=== PATIENT | male | born 1965 | race African-American/Black ===

== ENCOUNTER 2018-12-12 10:59 | Observation (INO) | payer OTHER ==
[2018-12-12] MEDS ORDERED: NITROGLYCERIN SL TABS 0.4 MG TAB SUBLINGUAL STA (11:23)
[2018-12-12] MEDS ORDERED: ASPIRIN 81 MG PO STA (11:23)
--- NOTE | 2018-12-12 11:45 | ED ---
Chest Pain HPI - General Chief Complaint: Chest Pain Stated Complaint: Chest Pain Time Seen by Provider: 12/12/18 11:00 Source: patient, EMS, RN notes reviewed Mode of arrival: EMS Limitations: no limitations - History of Present Illness Initial Comments: This is a 53-year-old male with a history of an AL this past June who states he started developing chest pain last evening. It was intermittent now he states is 9/10 severity mid and left sternal pressure-like pain. He denies any shortness of breath however nausea vomiting sweats or other symptoms. He currently is in rehab for alcohol and cocaine abuse. He just arrived here last night he states. He does occasionally smoke cigarettes also. He denies any cough or phlegm production no other symptoms reported at this time MD Complaint: chest pain - Related Data Home Medications Medication Instructions Recorded Confirmed Acetaminophen [Tylenol 8 Hour] 650 mg PO Q4H PRN 12/12/18 12/12/18 Chlorpheniramine Maleate 4 mg PO Q4H PRN 12/12/18 12/12/18 [Chlor-Trimeton] Hydrochlorothiazide [Hydrodiuril] 12.5 mg PO DAILY@0600 12/12/18 12/12/18 Ibuprofen [Motrin] 600 mg PO Q6H PRN 12/12/18 12/12/18 Insulin Regular [HumuLIN R] 10 units SQ DAILY 12/12/18 12/12/18 Insulin Regular [HumuLIN R] See Protocol SQ ACHS 12/12/18 12/12/18 Multivitamins, Thera [Multivitamin 1 tab PO DAILY 12/12/18 12/12/18 (formulary)] Thiamine [Vitamin B-1] 100 mg PO DAILY 12/12/18 12/12/18 metFORMIN HCL [Glucophage] 500 mg PO BID 12/12/18 12/12/18 traZODone HCL 50 - 150 mg PO HS 12/12/18 12/12/18 Allergies Allergy/AdvReac Type Severity Reaction Status Date / Time Sulfa (Sulfonamide AdvReac Unknown Verified 12/12/18 11:08 Antibiotics) Review of Systems ROS Statement: Those systems with pertinent positive or pertinent negative responses have been documented in the HPI. ROS Other: All systems not noted in ROS Statement are negative. EKG Findings - EKG Results: EKG: interpreted by GOLDY, sinus rhythm (Sinus tachycardia rate of 105. Interval 162 QRS 70 QT since QTC 358/[address]-T wave changes this is compared to an EKG dated which shows a similar configuration.) Past Medical History Past Medical History: Chest Pain / Angina, CVA/TIA, Diabetes Mellitus History of Any Multi-Drug Resistant Organisms: None Reported Past Surgical History: No Surgical Hx Reported Past Psychological History: Depression Smoking Status: Current some day smoker Past Alcohol Use History: Heavy Past Drug Use History: Cocaine General Exam - General Exam Comments Initial Comments: Is a well-developed well-nourished awake alert oriented 3 male Limitations: no limitations General appearance: alert, in no apparent distress Head exam: Present: atraumatic, normocephalic, normal inspection Eye exam: Present: normal appearance, PERRL, EOMI. Absent: scleral icterus, conjunctival injection, periorbital swelling ENT exam: Present: normal exam, mucous membranes moist Neck exam: Present: normal inspection, full ROM, other (No stridor JVD or bruits ). Absent: tenderness, meningismus, lymphadenopathy Respiratory exam: Present: normal lung sounds bilaterally. Absent: respiratory distress, wheezes, rales, rhonchi, stridor, chest wall tenderness Cardiovascular Exam: Present: normal rhythm, tachycardia, normal heart sounds. Absent: systolic murmur, diastolic murmur, rubs, gallop, clicks GI/Abdominal exam: Present: soft, normal bowel sounds. Absent: distended, tenderness, guarding, rebound, rigid, bruit, pulsatile mass Extremities exam: Present: normal inspection, full ROM, normal capillary refill. Absent: tenderness, pedal edema, joint swelling, calf tenderness Back exam: Present: normal inspection Neurological exam: Present: alert, oriented X3, CN II-XII intact Psychiatric exam: Present: normal mood, flat affect Skin exam: Present: warm, dry, intact, normal color. Absent: rash Course Vital Signs 12/12/18 11:02 Temperature 98.1 F Pulse Rate 105 H Respiratory 16 Rate Blood Pressure 120/86 O2 Sat by Pulse 100 Oximetry - Reevaluation(s) Reevaluation #1: 12/12/18 14:01 She does state he gets some relief of the nitroglycerin was given. He still has some chest pain however. Chest Pain MDM - MDM I did review the imaging and report or is no acute findings. The patient will be admitted for evaluation by cardiology. The presentation is consistent with angina. EKG at this time reveal similar configuration as EKG dated Critical Care Time Critical Care Time: Yes Critical Care Time: 31 minutes of critical care time which includes initial presentation with history physical labs x-rays reevaluation patient on several occasions discuss with the admitting physician Dr. Gracia. Review of old charting was available admission orders and documentation of the above Disposition Clinical Impression: Unstable angina pectoris, Chest pain Disposition: ADMITTED IP TO THIS [facility] Condition: Serious Referrals: None,Stated [Primary Care Provider] - 1-2 days
[2018-12-12 11:53] LABS: Basophils % (A) 1 %; Eosinophils # (A) 0.1 k/uL (0-0.7); Eosinophils % (A) 2 %; HCT 41.3 % (39.0-53.0); HGB 14.1 gm/dL (13.0-17.5); Lymphocytes # (A) 1.1 k/uL (1.0-4.8); Lymphocytes % (A) 24 %; MCH 30.3 pg (25.0-35.0); MCHC 34.1 g/dL (31.0-37.0); MCV 88.8 fL (80.0-100.0); Mean Platelet Volume 7.2; Monocytes # (A) 0.5 k/uL (0-1.0); Monocytes % (A) 11 %; Neutrophils # (A) 2.7 k/uL (1.3-7.7); Neutrophils % (A) 60 %; Platelet Count 172 k/uL (150-450); RBC 4.65 m/uL (4.30-5.90); RDW 13.1 % (11.5-15.5); WBC 4.4 k/uL (3.8-10.6)
[2018-12-12 12:11] LABS: ALT 11 U/L (21-72); AST 27 U/L (17-59); Albumin 3.9 g/dL (3.5-5.0); Alkaline Phosphatase 38 U/L (38-126); Amylase 78 U/L (30-110); Anion Gap 11 mmol/L; Blood Urea Nitrogen 21 mg/dL (9-20); Calcium 9.3 mg/dL (8.4-10.2); Carbon Dioxide 25 mmol/L (22-30); Chloride 96 mmol/L (98-107); Glucose 356 mg/dL (74-99); Lipase 17 U/L (23-300); Magnesium 1.7 mg/dL (1.6-2.3); Sodium 132 mmol/L (137-145); Total Bilirubin 0.8 mg/dL (0.2-1.3)
[2018-12-12 12:15] LABS: Creatine Kinase 51 U/L (55-170)
[2018-12-12 12:17] LABS: D-Dimer 0.32 mg/L FEU (<0.60); INR 0.9 (<1.2); Prothrombin Time 9.7 sec (9.0-12.0)
--- NOTE | 2018-12-12 12:26 | XR ---
EXAMINATION TYPE: XR chest 2V DATE OF EXAM: 12/12/2018 COMPARISON: NONE HISTORY: Shortness of breath TECHNIQUE: Frontal and lateral views of the chest are obtained. FINDINGS: Scattered senescent parenchymal changes noted. Hyperinflation compatible with COPD. No evidence for infiltrate. No evidence for atelectasis. Heart size is stable. Mediastinal structures are stable and grossly unremarkable. No evidence for hilar prominence. Degenerative changes dorsal spine. IMPRESSION: 1. No evidence for acute pulmonary disease.
[2018-12-12 12:27] LABS: Creatine Kinase MB 0.5 ng/mL (0.0-2.4); Troponin I <0.012 ng/mL (0.000-0.034)
[2018-12-12 12:31] LABS: Potassium 4.6 mmol/L (3.5-5.1)
[2018-12-12] MEDS ORDERED: NITROGLYCERIN OINT 1 INCH/GM PACKET TOPICAL STA (13:28)
[2018-12-12] MEDS ORDERED: NITROGLYCERIN SL TABS 0.4 MG TAB SUBLINGUAL PRN (14:04)
[2018-12-12] MEDS ORDERED: HEPARIN SODIUM,PORCINE 5,000 UNIT/ML 1 ML VIAL IV ONE (14:04)
[2018-12-12] MEDS ORDERED: ACETAMINOPHEN TAB 325 MG TAB PO PRN (14:08)
[2018-12-12] MEDS ORDERED: IBUPROFEN 600 MG TAB PO PRN (14:08)
[2018-12-12] MEDS ORDERED: diphenhydrAMINE 25 MG CAP PO PRN (14:08)
[2018-12-12] MEDS ORDERED: HEPARIN SOD,PORK IN 0.45% NACL 25,000 UNIT in 0.45% NACL 1 250ML.BAG IV SCH (14:15)
[2018-12-12 15:37] VITALS: RESP 18
--- NOTE | 2018-12-12 16:43 | P.HPIM ---
History of Present Illness Patient is a 51-year-old man came in with compensative chest pressure which started yesterday at [facility] exertional 9/10 in severity left precordial area radiating to the left shoulder associated shortness of breath lightheadedness as well as diaphoresis denied any nausea vomiting patient just pain is nonpleuritic not associated with food. Patient denied any fever chills cough chest x-ray did not show any pneumonic process d-dimer is negative. Patient was set of troponin is negative EKG EKG did not show any acute ST-T wave changes. Patient does have history of cocaine use but his last cocaine is more than 2 weeks ago patient was admitted to [facility] yesterday. Patient had a recent cardiac Catheterization at the [facility] in [place] and he was told he has a 30% stenosis in one of the vessels without any medical records from that facility. We will also obtain urine drug screen. Review of Systems REVIEW OF SYSTEMS: CONSTITUTIONAL: No fever, no malaise, no fatigue. HEENT: No recent visual problems or hearing problems. Denied any sore throat. CARDIOVASCULAR: No chest pain, orthopnea, PND, no palpitations, no syncope. PULMONARY: No shortness of breath, no cough, no hemoptysis. GASTROINTESTINAL: No diarrhea, no nausea, no vomiting, no abdominal pain. NEUROLOGICAL: No headaches, no weakness, no numbness. HEMATOLOGICAL: Denies any bleeding or petechiae. GENITOURINARY: Denies any burning micturition, frequency, or urgency. MUSCULOSKELETAL/RHEUMATOLOGICAL: Denies any joint pain, swelling, or any muscle pain. ENDOCRINE: Denies any polyuria or polydipsia. The rest of the 14-point review of systems is negative. Past Medical History Past Medical History: Chest Pain / Angina, CVA/TIA, Diabetes Mellitus, GERD/ Reflux, GI Bleed, Hypertension, Myocardial Infarction ([place]) Additional Past Medical History / Comment(s): bronchitis, "ulcers" ,tia, migraines Last Myocardial Infarction Date:: 2017 History of Any Multi-Drug Resistant Organisms: None Reported Past Surgical History: Heart Catheterization Additional Past Surgical History / Comment(s): lasik eye sx, egd, cyst removed from back Past Anesthesia/Blood Transfusion Reactions: Motion Sickness Additional Past Anesthesia/Blood Transfusion Reaction / Comment(s): has never received any blood transfusions Smoking Status: Current some day smoker - Past Family History Mother Family Medical History: Diabetes Mellitus, Hypertension Father History Unknown: Yes Medications and Allergies Home Medications Medication Instructions Recorded Confirmed Type Acetaminophen [Tylenol 8 Hour] 650 mg PO Q4H PRN 12/12/18 12/12/18 History Chlorpheniramine Maleate 4 mg PO Q4H PRN 12/12/18 12/12/18 History [Chlor-Trimeton] Hydrochlorothiazide [Hydrodiuril] 12.5 mg PO DAILY@0600 12/12/18 12/12/18 History Ibuprofen [Motrin] 600 mg PO Q6H PRN 12/12/18 12/12/18 History Insulin Regular [HumuLIN R] 10 units SQ DAILY 12/12/18 12/12/18 History Insulin Regular [HumuLIN R] See Protocol SQ ACHS 12/12/18 12/12/18 History Multivitamins, Thera [Multivitamin 1 tab PO DAILY 12/12/18 12/12/18 History (formulary)] Thiamine [Vitamin B-1] 100 mg PO DAILY 12/12/18 12/12/18 History metFORMIN HCL [Glucophage] 500 mg PO BID 12/12/18 12/12/18 History traZODone HCL 50 - 150 mg PO HS 12/12/18 12/12/18 History Allergies Allergy/AdvReac Type Severity Reaction Status Date / Time Sulfa (Sulfonamide AdvReac Unknown Verified 12/12/18 11:08 Antibiotics) Physical Exam Vitals: Vital Signs Temp Pulse Pulse Resp BP BP Pulse Ox 12/12/18 16:00 95 18 12/12/18 15:15 98.7 F 95 18 132/88 98 12/12/18 14:31 98.0 F 90 16 119/85 100 12/12/18 11:02 98.1 F 105 H 16 120/86 100 Intake and Output 12/12/18 12/12/18 12/12/18 06:59 14:59 22:59 Intake Total 480 Balance 480 Intake: Oral 480 Other: Voiding Method Toilet Weight 80.739 kg PHYSICAL EXAMINATION: GENERAL: The patient is alert and oriented x3, not in any acute distress. Well developed, well nourished. HEENT: Pupils are round and equally reacting to light. EOMI. No scleral icterus. No conjunctival pallor. Normocephalic, atraumatic. No pharyngeal erythema. No thyromegaly. CARDIOVASCULAR: S1 and S2 present. No murmurs, rubs, or gallops. PULMONARY: Chest is clear to auscultation, no wheezing or crackles. ABDOMEN: Soft, nontender, nondistended, normoactive bowel sounds. No palpable organomegaly. MUSCULOSKELETAL: No joint swelling or deformity. EXTREMITIES: No cyanosis, clubbing, or pedal edema. NEUROLOGICAL: Gross neurological examination did not reveal any focal deficits. SKIN: No rashes. Results CBC & Chem 7: 12/12/18 11:15 12/12/18 11:15 Labs: Abnormal Lab Results - Last 24 Hours (Table) 12/12/18 12/12/18 Range/Units 11:15 11:15 Sodium 132 L (137-145) mmol/L Chloride 96 L (98-107) mmol/L BUN 21 H (9-20) mg/dL Glucose 356 H (74-99) mg/dL ALT 11 L (21-72) U/L Total Creatine Kinase 51 L (55-170) U/L Lipase 17 L (23-300) U/L Thrombosis Risk Factor Assmnt - Choose All That Apply Any of the Below Risk Factors Present?: Yes Each Factor Represents 1 point: Age 41-60 years Thrombosis Risk Factor Assessment Total Risk Factor Score: 1 Thrombosis Risk Factor Assessment Level: Low Risk Assessment and Plan Plan: -Chest pain: We will rule out a concurrent syndromes and unstable angina. Patient is recent headache catheterization with 30% stenosis unsure whether he will need a repeat cardiac catheterizations since he had one recently in spite of his typical chest pain features. -Hyponatremia secondary to hydrocodone thiazide which will be discontinued and patient was started on IV fluids -Type 2 diabetes mellitus metformin will be held his insulin will be continued along with sliding scale. -Continue nicotine use: Counseling was provided -History of cocaine use: Counseling was provided patient will go to [facility] after this hospitalization
[2018-12-12] MEDS: SODIUM CHLORIDE 0.9% 1,000 ML IV SCH (16:52)
[2018-12-12 17:30] LABS: Glucose,Whole Blood 267 mg/dL (75-99)
[2018-12-12] MEDS ORDERED: metFORMIN 500 MG TAB PO SCH (17:30)
[2018-12-12] MEDS: INSULIN ASPART (NovoLOG) 100 UNIT/ML VIAL SQ SCH ×2 (17:34→20:38)
[2018-12-12] MEDS: NITROGLYCERIN OINT 1 INCH/GM PACKET TOPICAL SCH ×2 (17:34→22:45)
[2018-12-12 18:22] LABS: Creatine Kinase 42 U/L (55-170)
[2018-12-12 18:36] LABS: Creatine Kinase MB 0.4 ng/mL (0.0-2.4); Troponin I <0.012 ng/mL (0.000-0.034)
[2018-12-12 20:21] LABS: Glucose,Whole Blood 311 mg/dL (75-99)
[2018-12-12] MEDS ORDERED: traZODone HCL 50 MG TAB PO SCH (21:00)
[2018-12-13] MEDS: SODIUM CHLORIDE 0.9% 1,000 ML IV SCH
[2018-12-13 00:11] LABS: Creatine Kinase 38 U/L (55-170)
[2018-12-13 00:25] LABS: Creatine Kinase MB 0.4 ng/mL (0.0-2.4); Troponin I <0.012 ng/mL (0.000-0.034)
[2018-12-13 00:47] LABS: Cholesterol 209 mg/dL (<200); HDL Cholesterol 33 mg/dL (40-60); LDL Cholesterol,Calculated 157 mg/dL (0-99); Triglycerides 94 mg/dL (<150)
[2018-12-13] MEDS ORDERED: HYDROCHLOROTHIAZIDE 12.5 MG CAP PO SCH (06:00)
[2018-12-13 06:54] LABS: Glucose,Whole Blood 355 mg/dL (75-99)
[2018-12-13] MEDS ORDERED: DOBUTamine DRIP for NUC MED 500 MG in DEXTROSE/WATER 1 250ML.BAG IV ONE (08:15)
[2018-12-13] MEDS ORDERED: ASPIRIN 325 MG TAB PO SCH (09:00)
[2018-12-13] MEDS ORDERED: INSULIN REGULAR 100 UNIT/ML VIAL SQ SCH (09:00)
[2018-12-13] MEDS: INSULIN ASPART (NovoLOG) 100 UNIT/ML VIAL SQ SCH ×2 (09:38→12:52)
[2018-12-13] MEDS ORDERED: LOSARTAN 25 MG TAB PO SCH (10:15)
[2018-12-13] MEDS ORDERED: ATORVASTATIN 40 MG TAB PO SCH (10:15)
--- NOTE | 2018-12-13 10:16 | P.CRDCN ---
History of Present Illness History of present illness: This is a pleasant 53-year-old male past medical history significant for coronary artery disease s/p PR per the patient with no stents or bypass surgery. He states this took place last year in [place], will obtain those records. He also has diabetes mellitus, hypertension, prior CVA and suffers with cocaine addiction, chronic nicotine dependence and daily alcohol use. He last used cocaine 2 weeks ago and is currently being treated at [facility]. He follows with a iron piler in [place]. We have been asked to see him in consultation for chest pain. He states for the past 2 nights when he lays down to sleep he gets a pressure in his chest in the left precordial region that radiates to the left shoulder at times. This is not related to exertion with no specific aggravating factors. He feels mildly light headed and diaphoretic when he is having this discomfort. Currently he is laying flat in bed in no acute distress. His chest pain has subsided. EKG reveals sinus tachycardia heart rate [address] or T wave abnormalities noted. Repeat EKG unremarkable. Chest x-ray is negative for an acute cardiopulmonary process. Evidence of hyperinflation compatible with COPD. Laboratory data reviewed, cardiac enzymes negative 3, WBC 4.4, hemoglobin 14.1 , platelets 172, d-dimer 0.32, sodium 132, potassium 4.6, magnesium 1.7 and creatinine 0.88. NT proBNP 32, LDL 157. Current cardiac medications include hydrochlorothiazide 12.5 mg daily. Hctz has been held per primary for hyponatremia. At the time of my exam: CONSTITUTIONAL: Denies fever. Denies chills. EYES: Denies blurred vision. Denies vision changes. Denies eye pain. EARS, NOSE, MOUTH & THROAT: Denies headache. Denies sore throat. Denies ear pain. CARDIOVASCULAR: Denies chest pain. Denies shortness of breath. Denies orthopnea. Denies PND. Denies palpitations. RESPIRATORY: Denies cough. GASTROINTESTINAL: Denies abdominal pain. Denies diarrhea. Denies constipation. Denies nausea. Denies vomiting. MUSCULOSKELETAL: Denies myalgias. INTEGUMENTARY: Denies pruitis. Denies rash. NEUROLOGIC: Denies numbness. Denies tingling. Denies weakness. PSYCHIATRIC: Denies anxiety. Denies depression. ENDOCRINE: Denies fatigue. Denies weight change. Denies polydipsia. Denies polyurina. GENITOURINARY: Denies burning, hematuria or urgency with micturation. HEMATOLOGIC: Denies history of anemia. Denies bleeding. Blood pressure 149/91 heart rate 94 afebrile maintaining oxygen saturation on room air GENERAL: This is a 53-year-old -[place] male in no apparent distress at the time of my examination. HEENT: Head is atraumatic, normocephalic. Pupils are equal, round. Sclerae anicteric. Conjunctivae are clear. Mucous membranes of the mouth are moist. Neck is supple. There is no jugular venous distention. No carotid bruit is heard. LUNGS: Clear to auscultation no wheezes, rales or rhonchi. No chest wall tenderness is noted on palpation or with deep breathing. HEART: Regular rate and rhythm without murmurs, rubs or gallops. S1 and S2 heard. ABDOMEN: Soft, nontender. Bowel sounds are heard. No organomegaly noted. EXTREMITIES: No evidence of peripheral edema and no calf tenderness noted. VASCULAR: Radial and dorsalis pedis pulses palpated, no evidence of clubbing. NEUROLOGIC: Patient is awake, alert and oriented x3. ASSESSMENT Chest pain, atypical for angina. An acute coronary event has been ruled out. Hypertension Dyslipidemia Diabetes mellitus Cocaine abuse Chronic nicotine dependence Daily alcohol intake PLAN An acute coronary event has been ruled out. Obtain reports [place] [facility] [place]. Obtain 2D echocardiogram and doppler study to assess cardiac structure and function. Perform dobutamine stress echocardgiogram to assess for stress induced ischemia. Recommend atorvastatin 40 mg daily for lowering of LD cholesterol and losartan for blood pressure control. Cessation of alcohol, cocaine and tobacco highly recommended. If stress test is normal he is stable from a cardiac perspective for discharge back to rehab. Follow up upon discharge with his primary iron piler. Thank you kindly for this consultation. Nurse Practitioner note has been reviewed, I agree with a documented findings and plan of care. Patient was seen and examined. Past Medical History Past Medical History: Chest Pain / Angina, CVA/TIA, Diabetes Mellitus, GERD/ Reflux, GI Bleed, Hypertension, Myocardial Infarction ([place]) Additional Past Medical History / Comment(s): bronchitis, "ulcers" ,tia, migraines Last Myocardial Infarction Date:: 2017 History of Any Multi-Drug Resistant Organisms: None Reported Past Surgical History: Heart Catheterization Additional Past Surgical History / Comment(s): lasik eye sx, egd, cyst removed from back Past Anesthesia/Blood Transfusion Reactions: Motion Sickness Additional Past Anesthesia/Blood Transfusion Reaction / Comment(s): has never received any blood transfusions Smoking Status: Current some day smoker - Past Family History Mother Family Medical History: Diabetes Mellitus, Hypertension Father History Unknown: Yes Medications and Allergies Home Medications Medication Instructions Recorded Confirmed Type Acetaminophen [Tylenol 8 Hour] 650 mg PO Q4H PRN 12/12/18 12/12/18 History Chlorpheniramine Maleate 4 mg PO Q4H PRN 12/12/18 12/12/18 History [Chlor-Trimeton] Hydrochlorothiazide [Hydrodiuril] 12.5 mg PO DAILY@0600 12/12/18 12/12/18 History Ibuprofen [Motrin] 600 mg PO Q6H PRN 12/12/18 12/12/18 History Insulin Regular [HumuLIN R] 10 units SQ DAILY 12/12/18 12/12/18 History Insulin Regular [HumuLIN R] See Protocol SQ ACHS 12/12/18 12/12/18 History Multivitamins, Thera [Multivitamin 1 tab PO DAILY 12/12/18 12/12/18 History (formulary)] Thiamine [Vitamin B-1] 100 mg PO DAILY 12/12/18 12/12/18 History metFORMIN HCL [Glucophage] 500 mg PO BID 12/12/18 12/12/18 History traZODone HCL 50 - 150 mg PO HS 12/12/18 12/12/18 History Allergies Allergy/AdvReac Type Severity Reaction Status Date / Time Sulfa (Sulfonamide AdvReac Unknown Verified 12/12/18 11:08 Antibiotics) Physical Exam Vitals: Vital Signs Temp Pulse Pulse Resp BP BP Pulse Ox 12/13/18 04:00 98.4 F 105 H 18 103/64 96 12/13/18 00:00 18 12/12/18 23:13 98.9 F 114 H 18 146/93 97 12/12/18 20:00 99.1 F 104 H 18 116/77 95 12/12/18 19:02 96 12/12/18 16:00 95 18 12/12/18 15:15 98.7 F 95 18 132/88 98 12/12/18 14:31 98.0 F 90 16 119/85 100 12/12/18 11:02 98.1 F 105 H 16 120/86 100 Intake and Output 12/12/18 12/13/18 12/13/18 22:59 06:59 14:59 Intake Total 118 129.389 Balance 118 129.389 Intake: Intake, IV Titration 129.389 Amount Heparin Sod,Pork in 0.45% 129.389 NaCl 25,000 unit In 0.45 % NaCl 1 250ml.bag @ 12 UNITS/KG/HR 9.68 mls/hr IV .Q24H [facility] Rx#: [id number] Oral 118 Other: Voiding Method Toilet Toilet # Voids 1 1 Results 12/12/18 11:15 12/12/18 11:15 Cardiac Enzymes 12/12/18 12/12/18 12/12/18 Range/Units 11:15 11:15 17:34 AST 27 (17-59) U/L CK-MB (CK-2) 0.5 0.4 (0.0-2.4) ng/mL Troponin I <0.012 <0.012 (0.000-0.034) ng/mL 12/12/18 Range/Units 23:20 AST (17-59) U/L CK-MB (CK-2) 0.4 (0.0-2.4) ng/mL Troponin I <0.012 (0.000-0.034) ng/mL Coagulation 12/12/18 12/13/18 Range/Units 11:15 02:00 PT 9.7 (9.0-12.0) sec APTT 22.0 38.7 H (22.0-30.0) sec Lipids 12/12/18 Range/Units 11:15 Triglycerides 94 (<150) mg/dL Cholesterol 209 H (<200) mg/dL HDL Cholesterol 33 L (40-60) mg/dL CBC 12/12/18 Range/Units 11:15 WBC 4.4 (3.8-10.6) k/uL RBC 4.65 (4.30-5.90) m/uL Hgb 14.1 (13.0-17.5) gm/dL Hct 41.3 (39.0-53.0) % Plt Count 172 (150-450) k/uL Comprehensive Metabolic Panel 12/12/18 Range/Units 11:15 Sodium 132 L (137-145) mmol/L Potassium 4.6 (3.5-5.1) mmol/L Chloride 96 L (98-107) mmol/L Carbon Dioxide 25 (22-30) mmol/L BUN 21 H (9-20) mg/dL Creatinine 0.88 (0.66-1.25) mg/dL Glucose 356 H (74-99) mg/dL Calcium 9.3 (8.4-10.2) mg/dL AST 27 (17-59) U/L ALT 11 L (21-72) U/L Alkaline Phosphatase 38 (38-126) U/L Total Protein 7.0 (6.3-8.2) g/dL Albumin 3.9 (3.5-5.0) g/dL Current Medications Generic Name Dose Route Start Last Admin Trade Name Freq PRN Reason Stop Dose Admin Acetaminophen 650 mg 12/12/18 14:08 12/12/18 23:08 Tylenol Tab PO 650 mg Q4H PRN Administration Pain or Fever > 100.5 Aspirin 325 mg 12/13/18 09:00 Aspirin PO DAILY [facility] Diphenhydramine HCl 25 mg 12/12/18 14:08 12/12/18 23:08 Benadryl PO 25 mg Q4H PRN Administration Allergy Symptoms Heparin Sodium/Sodium Chloride 250 mls @ 9.68 mls/hr 12/12/18 14:15 12/13/18 04:09 25,000 unit/ Sodium Chloride IV 15 units/kg/hr .Q24H [facility] 12.11 mls/hr Titration Protocol 12 UNITS/KG/HR Sodium Chloride 1,000 mls @ 100 mls/hr 12/12/18 16:45 12/13/18 00:00 Saline 0.9% IV 100 mls/hr .Q10H [facility] Administration Insulin Aspart 0 unit 12/12/18 17:30 12/12/18 20:38 Novolog SQ 5 unit ACHS [facility] Administration Protocol Insulin Human Regular 10 unit 12/13/18 09:00 Humulin R SQ DAILY [facility] Multivitamins 1 each 12/13/18 12:00 Theragran PO 1200 [facility] Nitroglycerin 1 inch 12/12/18 18:00 12/12/18 22:45 Nitro-Bid Oint TOPICAL Not Given Q6HR [facility] Nitroglycerin 0.4 mg 12/12/18 14:04 Nitrostat SUBLINGUAL Q5M PRN Chest Pain Thiamine HCl 100 mg 12/13/18 12:00 Vitamin B-1 PO 1200 [facility] Trazodone HCl 50 mg 12/12/18 21:00 12/12/18 20:38 Desyrel PO 50 mg HS [facility] Administration Intake and Output 12/12/18 12/13/18 12/13/18 22:59 06:59 14:59 Intake Total 118 129.389 Balance 118 129.389 Intake: Intake, IV Titration 129.389 Amount Heparin Sod,Pork in 0.45% 129.389 NaCl 25,000 unit In 0.45 % NaCl 1 250ml.bag @ 12 UNITS/KG/HR 9.68 mls/hr IV .Q24H [facility] Rx#: [id number] Oral 118 Other: Voiding Method Toilet Toilet # Voids 1 1 12/12/18 11:15 12/12/18 11:15
[2018-12-13 11:49] LABS: Glucose,Whole Blood 304 mg/dL (75-99)
[2018-12-13] MEDS ORDERED: MULTIVITAMINS, THERA 1 EACH TAB PO SCH (12:00)
[2018-12-13] MEDS ORDERED: THIAMINE 100 MG TAB PO SCH (12:00)
[2018-12-13 12:24] LABS: Anion Gap 6 mmol/L; Blood Urea Nitrogen 17 mg/dL (9-20); Calcium 9.4 mg/dL (8.4-10.2); Carbon Dioxide 29 mmol/L (22-30); Chloride 100 mmol/L (98-107); Glucose 284 mg/dL (74-99); Potassium 4.2 mmol/L (3.5-5.1); Sodium 135 mmol/L (137-145)
[2018-12-13 12:30] VITALS: BP 132/85; PULSE 88; TEMP 98.2
--- NOTE | 2018-12-13 13:34 | P.DS ---
Providers Date of admission: 12/12/18 14:04 Attending physician: No Carlton Consults: 12/12/18 14:04 Consult Physician Urgent Consulting Provider: Shavonne Faye Consult Reason/Comments: Chest pain, unstable angina Do you want consulting provider notified?: Yes Primary care physician: Stated None Hospital Course: Patient is a 51-year-old man came in with compensative chest pressure which started yesterday at [facility] exertional 9/10 in severity left precordial area radiating to the left shoulder associated shortness of breath lightheadedness as well as diaphoresis denied any nausea vomiting patient just pain is nonpleuritic not associated with food. Patient denied any fever chills cough chest x-ray did not show any pneumonic process d-dimer is negative. Patient was set of troponin is negative EKG EKG did not show any acute ST-T wave changes. Patient does have history of cocaine use but his last cocaine is more than 2 weeks ago patient was admitted to [facility] yesterday. Patient had a recent cardiac Catheterization at the [facility] in [place] and he was told he has a 30% stenosis in one of the vessels without any medical records from that facility. We will also obtain urine drug screen. 12/13/2018 Patient is clinically doing well no chest pain will be discharged today stresses is negative. PHYSICAL EXAMINATION: GENERAL: The patient is alert and oriented x3, not in any acute distress. Well developed, well nourished. HEENT: Pupils are round and equally reacting to light. EOMI. No scleral icterus. No conjunctival pallor. Normocephalic, atraumatic. No pharyngeal erythema. No thyromegaly. CARDIOVASCULAR: S1 and S2 present. No murmurs, rubs, or gallops. PULMONARY: Chest is clear to auscultation, no wheezing or crackles. ABDOMEN: Soft, nontender, nondistended, normoactive bowel sounds. No palpable organomegaly. MUSCULOSKELETAL: No joint swelling or deformity. EXTREMITIES: No cyanosis, clubbing, or pedal edema. NEUROLOGICAL: Gross neurological examination did not reveal any focal deficits. SKIN: No rashes. Assessment and Plan Plan: -Chest pain: We will rule out acute coronary syndromes and unstable angina. Patient undergo stress test today that's negative patient will be discharged today -Hyponatremia secondary to hydrocodone thiazide which will be discontinued and improved serum sodium and patient will be discharged on losartan and set up hydrochlorothiazide -Type 2 diabetes mellitus -Continue nicotine use: Counseling was provided -History of cocaine use: Counseling was provided patient will go to [facility] after this hospitalization Patient Condition at Discharge: Serious Plan - Discharge Summary Discharge Rx Participant: Yes New Discharge Prescriptions: New Atorvastatin [Lipitor] 40 mg PO DAILY #90 tab Losartan [Cozaar] 25 mg PO DAILY #30 tab Continue traZODone HCL 50 - 150 mg PO HS Chlorpheniramine Maleate [Chlor-Trimeton] 4 mg PO Q4H PRN PRN Reason: Allergy Symptoms Ibuprofen [Motrin] 600 mg PO Q6H PRN PRN Reason: Pain Or Fever > 100.5 Insulin Regular [humuLIN R] See Protocol SQ ACHS Acetaminophen [Tylenol 8 Hour] 650 mg PO Q4H PRN PRN Reason: Pain Or Fever > 100.5 Insulin Regular [humuLIN R] 10 units SQ DAILY metFORMIN HCL [Glucophage] 500 mg PO BID Thiamine [Vitamin B-1] 100 mg PO DAILY Multivitamins, Thera [Multivitamin (formulary)] 1 tab PO DAILY Discontinued Hydrochlorothiazide [Hydrodiuril] 12.5 mg PO DAILY@0600 Discharge Medication List Acetaminophen [Tylenol 8 Hour] 650 mg PO Q4H PRN 12/12/18 [History] Chlorpheniramine Maleate [Chlor-Trimeton] 4 mg PO Q4H PRN 12/12/18 [History] Ibuprofen [Motrin] 600 mg PO Q6H PRN 12/12/18 [History] Insulin Regular [humuLIN R] 10 units SQ DAILY 12/12/18 [History] Insulin Regular [humuLIN R] See Protocol SQ ACHS 12/12/18 [History] Multivitamins, Thera [Multivitamin (formulary)] 1 tab PO DAILY 12/12/18 [History ] Thiamine [Vitamin B-1] 100 mg PO DAILY 12/12/18 [History] metFORMIN HCL [Glucophage] 500 mg PO BID 12/12/18 [History] traZODone HCL 50 - 150 mg PO HS 12/12/18 [History] Atorvastatin [Lipitor] 40 mg PO DAILY #90 tab 12/13/18 [Rx] Losartan [Cozaar] 25 mg PO DAILY #30 tab 12/13/18 [Rx] Follow up Appointment(s)/Referral(s): Jaylene Schmidt MD [REFERRING] - 1 Week None,Stated [Primary Care Provider] - 1-2 days Discharge Disposition: HOME SELF-CARE
--- NOTE | 2018-12-13 13:49 | ECHOS ---
STRESS ECHOCARDIOGRAM INDICATIONS: Chest pain. BASELINE HEART RATE: 91 BASELINE BLOOD PRESSURE: 128/73 MAXIMUM HEART RATE: 144 MAXIMUM BLOOD PRESSURE: 204/80 85% MPHR: 143 100% MPHR: 168 MAXIMUM STAGE REACHED: 4 TOTAL EXERCISE TIME: 9:45 CLINICAL INFORMATION: Baseline EKG shows sinus rhythm, normal axis, normal intervals. Patient was given intravenous dobutamine over a period of 9.5 minutes achieving 85% of predicted maximal heart rate without chest pain or diagnostic ST-segment depression. Baseline echo shows normal left ventricular size, wall motion, systolic function. Post dobutamine infusion, there is normal hyperdynamic response of all segments of myocardium noted. CONCLUSION: 1. Negative stress test by EKG criteria. 2. Negative dobutamine echo. MMODL / IJN: [id number] /
[2018-12-14] MEDS ORDERED: ASPIRIN 81 MG PO SCH (09:00)
== END 2018-12-13 15:26 | disposition home or self-care (01) ==
LOC: EC 10:59 → 1SOBS 14:04
PROVIDERS: ADMIT Internal Medicine; ATTEND Internal Medicine
DX: R07.89 Other chest pain (principal); R61 Generalized hyperhidrosis; I10 Essential (primary) hypertension; E11.9 Type 2 diabetes mellitus without complications; R42 Dizziness and giddiness; I25.10 Atherosclerotic heart disease of native coronary artery without angina pectoris; E87.1 Hypo-osmolality and hyponatremia; T50.2X5A Adverse effect of carbonic-anhydrase inhibitors, benzothiadiazides and other diuretics, initial encounter; E78.5 Hyperlipidemia, unspecified; K21.9 Gastro-esophageal reflux disease without esophagitis; F32.9 Major depressive disorder, single episode, unspecified; G43.909 Migraine, unspecified, not intractable, without status migrainosus; F14.20 Cocaine dependence, uncomplicated; F17.210 Nicotine dependence, cigarettes, uncomplicated; Z79.4 Long term (current) use of insulin; Z79.899 Other long term (current) drug therapy; Z88.2 Allergy status to sulfonamides; Z86.73 Personal history of transient ischemic attack (TIA), and cerebral infarction without residual deficits; Z72.89 Other problems related to lifestyle; Z87.09 Personal history of other diseases of the respiratory system; I25.2 Old myocardial infarction; Z83.3 Family history of diabetes mellitus; Z82.49 Family history of ischemic heart disease and other diseases of the circulatory system
CPT/HCPCS: 96366 ×2; 96376; 96365; 99291; 36415; 94760; 93005; 93306; 93351; 85379; 83880; 80061; 80053; 80048; 82150; 82550; 82553; 83690; 83735; 84484; 85025; 85610; 85730 ×2; 71046; G0378 ×2; J1250; J1644 ×2